=== PATIENT | female | born 1950 | race Caucasian/White ===

== ENCOUNTER → 2023-07-04 | Emergency (ER) | payer OTHER ==
[~2023-07-04] MED LIST: ALBUTEROL 2.5 MG/3 ML NEB SOL ONE; AMOX/K CLAV 875 MG TAB ONE; IPRATROPIUM BROM 0.5MG/2.5ML ONE; NA CHLORIDE 0.9% 1,000 ML ONE
--- OUTSIDE RECORDS SUMMARY | 2023-07-04 17:27 | XMS REPORT | Continuity of Care Document ---
Author Name Unknown Address [address] [place] [address] [employer] Address [address] [place] [address] Care Team Providers Care Pearl Cutter Name Role Phone [email or web address] Attending Clinician Unavaila ble [email or web address] Admitting Clinician Unavaila ble Encounters Start Date/Time End Date/Time Encounter Type Admission Type Attending Clinicians Care Facility Care Department Encounter ID Source 2023-05-07 00:00:00 2023-05-07 00:00:00 Outpatient [email or web address] diyala_S PRIV PRIV [id number] [facility] 2023-05-06 00:00:00 2023-05-06 00:00:00 Outpatient [email or web address] diyala_S PRIV PRIV [id number] [facility]
--- NOTE | 2023-07-04 18:18 | RAD REPORT ---
EXAM DESCRIPTION: RAD - Chest Single View - 07/04/2023 6:08 pm CLINICAL HISTORY: COUGH COMPARISON: Chest Pa And Lat (2 Views) dated 09/13/2017 FINDINGS: Lines: None. Lungs: Coarsening of the pulmonary interstitium which is new from prior . Pleural: No significant pleural effusions or pneumothorax. Cardiac: The heart size is within normal limits. Mediastinum: Within normal limits. Bones: No acute fractures. Other: None IMPRESSION: Coarsened pulmonary interstitium may reflect a nonspecific infectious or inflammatory pr ocess. No edema or consolidative pneumonia.
[2023-07-04 18:57] LABS: Absolute Lymphocytes (CBC) 2.5 K/uL (0.7-4.9); Hematocrit 39.8 % (36.0-45.0); MCV 85.9 fL (80-100); MPV 7.8 fL (7.6-11.3); Platelets 458 thou/uL (152-406); RBC Red Blood Cell Count 4.63 M/uL (3.86-4.86)
[2023-07-04 19:17] LABS: Albumin 2.5 g/dL (3.4-5.0); Bilirubin Total 0.2 mg/dL (0.2-1.0); Potassium 4.8 mEq/L (3.5-5.1); Protein, Total 7.5 g/dL (6.4-8.2)
--- NOTE | 2023-07-04 19:26 | EDPHYS ---
Physician Documentation [facility] Name: Kena Alberto Age: 72 yrs Sex: Female : 1950 Arrival Date: 07/04/2023 Time: 17:23 Bed 7 Private MD: ED Physician Taran Miller HPI: 07/04 17:43 This 72 yrs old Female presents to ER via Ambulatory with complaints of ec2 Pneumonia. 17:43 Patient arrives today for respiratory symptoms. Patient reports that she experiencing ec2 approximately 2 weeks of cough and cold symptoms. States that she was diagnosed with a pneumonia at the urgent care and started on azithromycin which she has been taking for 2 days. Patient reports some subjective fevers and chills, no nausea or vomiting, does complain of diarrhea. Patient reports no history of COPD or asthma.. Historical: - Allergies: 17:38 No Known Allergies; cm10 - PMHx: 17:38 Hypothyroidism; OSTEOPENIA; cm10 - Immunization history:: Adult Immunizations up to date. - Social history:: Smoking status: Patient denies any tobacco usage or history of. ROS: 17:43 Constitutional: as per hpi ec2 Exam: 17:43 Constitutional: GEN: NAD Head: atraumatic Eyes: EOMI Ears: External ears are ec2 normal. CV: regular rate LUNGS: no respiratory distress, no wheezes, no rales, no rhonchi ABD: non-distended SKIN: no evidence of rashes MSK: no evidence of trauma NEURO: moves all extremities equally Vital Signs: 17:36 BP 141 / 58; Pulse 81; Resp 18; Temp 98; Pulse Ox 97% on R/A; Weight 71.67 kg; Height 5 cm10 ft. 0 in. ; Pain 9/10; 19:30 BP 137 / 60; Pulse 79; Resp 20; Pulse Ox 100% ; vc1 17:36 Body Mass Index 30.86 (71.67 kg, 152.4 cm) cm10 17:36 Pain Scale: Adult cm10 MDM: 17:43 Data reviewed: vital signs. ED course: Patient arrives today for cough and cold ec2 symptoms. Examination remarkable for nontoxic individual is in no acute distress with a reassuring cardiopulmonary examination. Will obtain lab work, EKG, chest x-ray for further assessment patient complaint. Currently considering process such as pneumonia, viral infection, lower suspicion for CHF.. 18:48 Patient medically screened. ec2 18:48 ED course: Chest x-ray shows inflammatory versus infectious process. Presumptive ec2 infectious process.. 19:04 ED course: CBC shows leukocytosis. . ec2 19:14 ED course: EKG independently reviewed and interpreted by me, shows normal sinus rhythm, ec2 rate of 71, no acute ST segment elevations, nonconcerning intervals.. 19:18 ED course: Metabolic profile is reassuring, BNP minimally elevated. On reassessment ec2 patient remains well-appearing in no acute distress. Patient is on azithromycin already, will add on additional antibiotic for pneumonia. Will add on Augmentin. . 19:25 ED course: Additionally of note, patient did receive steroid injection 2 days ago, ec2 suspect the marked leukocytosis secondary to this.. 12 17:42 Order name: CBC with Diff ec2 07/04 17:42 Order name: CMP; Complete Time: 19:18 ec2 07/04 17:42 Order name: SARS RAPID; Complete Time: 19:42 ec2 07/04 17:42 Order name: Influenza Screen (a \T\ B); Complete Time: 19:42 ec2 07/04 17:42 Order name: BNP; Complete Time: 19:18 ec2 07/04 19:46 Order name: CBC Smear Scan EDMS 07/04 17:42 Order name: CXR XRAY; Complete Time: 18:48 ec2 07/04 17:42 Order name: EKG; Complete Time: 17:42 ec2 07/04 17:42 Order name: EKG - Nurse/Tech; Complete Time: 19:14 ec2 07/04 18:49 Order name: IV Start; Complete Time: 18:49 ll1 Administered Medications: 19:01 Drug: NS 0.9% IV 1000 ml IV at 1 bolus Per protocol; 1000 mL bolus Route: IV; Rate: 1 ll1 bolus; Site: right antecubital; 19:01 Drug: DuoNeb Nebulize (3:1) (2.5 mg - 0.5 mg) 3 ml Nebulizer once Route: Nebulizer; ll1 19:45 Drug: Amoxicillin-Clavulanate PO 875 mg PO once Route: PO; vc1 Disposition Summary: 07/04/23 19:25 Discharge Ordered Notes: Location: Home ec2 Condition: Stable ec2 Diagnosis - Unspecified bacterial pneumonia ec2 Followup: ec2 - With: Private Physician - When: - Reason: Recheck today's complaints Discharge Instructions: - Discharge Summary Sheet ec2 - Community-Acquired Pneumonia, Adult ec2 Forms: - Medication Reconciliation Form ec2 - Thank You Letter ec2 - Antibiotic Education ec2 - Prescription Opioid Use ec2 - Patient Portal Instructions ec2 - Leadership Thank You Letter ec2 Prescriptions: - albuterol sulfate 90 mcg/actuation Inhalation HFA Aerosol Inhaler - inhale 2 inhalation INHALATION route every 4 hours administer via ventilator; ec2 90 microgram; Refills: 0, Product Selection Permitted - Augmentin 875-125 mg Oral tablet - take 1 tablet ORAL route every 12 hours for 7 days; 14 tablet; Refills: 0, ec2 Product Selection Permitted Signatures: Dispatcher [employer] Salazar Fong RN RN ll1 Amber Walter RN RN vc1 Lazara Jackson RN RN cm10 Taran Miller MD MD ec2
--- NOTE | 2023-07-04 19:26 | ER ---
Nurse's Notes [facility] Name: Kena Alberto Age: 72 yrs Sex: Female : 1950 Arrival Date: 07/04/2023 Time: 17:23 Bed 7 Private MD: Diagnosis: Unspecified bacterial pneumonia Presentation: 07/04 17:36 Chief complaint: Patient states: DIAGNOSED WITH PNEUMONIA 2 DAYS AGO AT NEXT LEVEL cm10 URGENT CARE. PT CURRENTLY TAKING A Z-PACK. PT STATES THAT SHE IS NOT FEELING ANY BETTER. Coronavirus screen: Vaccine status: Patient reports receiving the 2nd dose of the covid vaccine. Client denies travel out of the [place] in the last 14 days. Ebola Screen: Patient denies travel to an Ebola-affected area in the 21 days before illness onset. No symptoms or risks identified at this time. Initial Sepsis Screen: Does the patient meet any 2 criteria? No. Patient's initial sepsis screen is negative. Does the patient have a suspected source of infection? No. Patient's initial sepsis screen is negative. Risk Assessment: Do you want to hurt yourself or someone else? Patient reports no desire to harm self or others. Onset of symptoms was July 04, 2023. 17:36 Method Of Arrival: Ambulatory 10 17:36 Acuity: DARIUS 3 cm10 Historical: - Allergies: 17:38 No Known Allergies; cm10 - PMHx: 17:38 Hypothyroidism; OSTEOPENIA; cm10 - Immunization history:: Adult Immunizations up to date. - Social history:: Smoking status: Patient denies any tobacco usage or history of. Screenin:36 [facility] ED Fall Risk Assessment (Adult) Score/Fall Risk Level 0 - 2 = Low Risk ll1 Oriented to surroundings, Maintained a safe environment, Educated pt \T\ family on fall prevention, incl call for assistance when getting out of bed, Hourly rounding (assess needs \T\ fall precautionary measures) done. Abuse screen: Denies threats or abuse. Nutritional screening: No deficits noted. Tuberculosis screening: No symptoms or risk factors identified. Assessment: 18:36 General: Appears uncomfortable, ill, Behavior is calm, cooperative, appropriate for ll1 age. General: Reports feeling ill for fatigue for. Respiratory: Reports cough that is pain with cough. 19:01 Reassessment: No changes from previously documented assessment. Patient and/or family ll1 updated on plan of care and expected duration. Pain level reassessed. Patient is alert, oriented x 3, equal unlabored respirations, skin warm/dry/pink. 19:50 Reassessment: Patient and/or family updated on plan of care and expected duration. Pain vc1 level reassessed. Patient is alert, oriented x 3, equal unlabored respirations, skin warm/dry/pink. Patient states feeling better. Vital Signs: 17:36 BP 141 / 58; Pulse 81; Resp 18; Temp 98; Pulse Ox 97% on R/A; Weight 71.67 kg; Height 5 cm10 ft. 0 in. ; Pain 9/10; 19:30 BP 137 / 60; Pulse 79; Resp 20; Pulse Ox 100% ; vc1 17:36 Body Mass Index 30.86 (71.67 kg, 152.4 cm) cm10 17:36 Pain Scale: Adult cm10 ED Course: 17:27 Patient arrived in ED. mr 17:28 Taran Miller MD is Attending Physician. ec2 17:38 Triage completed. cm10 17:38 Arm band placed on Patient placed in waiting room. cm10 18:10 CXR XRAY In Process Unspecified. EDMS 18:35 Salazar Snyder, MEÑO is Primary Nurse. ll1 18:36 Patient has correct armband on for positive identification. Bed in low position. Call ll1 light in reach. Client placed on continuous cardiac and pulse oximetry monitoring. NIBP monitoring applied. 18:48 SARS RAPID Sent. ll1 18:48 Influenza Screen (a \T\ B) Sent. ll1 19:50 No provider procedures requiring assistance completed. IV discontinued, intact, vc1 bleeding controlled, No redness/swelling at site. Pressure dressing applied. 19:51 Provided Education on: finish antibiotic even if feeling better. vc1 Administered Medications: 19:01 Drug: NS 0.9% IV 1000 ml IV at 1 bolus Per protocol; 1000 mL bolus Route: IV; Rate: 1 ll1 bolus; Site: right antecubital; 19:01 Drug: DuoNeb Nebulize (3:1) (2.5 mg - 0.5 mg) 3 ml Nebulizer once Route: Nebulizer; ll1 19:45 Drug: Amoxicillin-Clavulanate PO 875 mg PO once Route: PO; vc1 Medication: 18:36 VIS not applicable for this client. ll1 Outcome: 19:25 Discharge ordered by . ec2 19:50 Discharged to home ambulatory, with significant other, vc1 19:50 Condition: good 19:50 Discharge instructions given to patient, significant other, Instructed on discharge instructions, follow up and referral plans. medication usage, Demonstrated understanding of instructions, follow-up care, medications, Prescriptions given X 2, 19:52 Patient left the ED. vc1 Signatures: Dispatcher [employer] EDAshley Jauregui, Reg Reg mr Salazar Snyder, RN RN ll1 Amber Walter RN RN vc1 Lazara Jackson RN RN cm10 Taran Miller MD MD ec2
[2023-07-04 19:36] LABS: SARS-CoV-2 Antigen Rapid Res Negative (Negative)
[2023-07-04 19:46] LABS: Blood Morphology Comment NOT SEEN (NOT SEEN); Platelet Estimate INCR; Toxic Granulation 1+; White Blood Cell Scan OK (OK)
[2023-07-04 22:32] VITALS: BP 137/60; TEMP 98; O2SAT 100
--- NOTE | 2023-07-05 15:29 | EKG ---
Test Date: 2023-07-04 Test Time: 19:10:14 Medical Records Coder: ARTUR MEASUREMENT RESULTS: Intervals: Rate: 71 MN: 134 QRSD: 78 QT: 372 QTc: 404 [place]: P: 67 MN: 134 QRS: 83 T: 78 INTERPRETIVE STATEMENTS: Normal sinus rhythm Normal ECG No previous ECG available for comparison Electronically Signed On 07-05-23 15:27:03 OPEN TENTER OPERATOR by Bhavin العراقي
== END ==
LOC: ER 17:23
DX: J15.9 Unspecified bacterial pneumonia (principal); Z11.52 Encounter for screening for COVID-19
CPT/HCPCS: 93005; 85025; 36415; 80053; 83880; 87804 ×2; 71045; 94640; 99285; 87811; J7613; J7644; J7030